=== PATIENT | male | born 1940 | race American Indian/Alaskan Native ===

== ENCOUNTER 2018-11-05 14:33 | Emergency (ER) | payer SELFPAY ==
[2018-11-05 15:06] LABS: Bilirubin Small (Negative); Blood, Urine Negative (Negative); Clarity CLEAR (Clear); Glucose, Urine (Dipstick) Negative (Negative); Leukocyte Negative (Negative); Nitrite Negative (Negative); Protein, Urine (Dipstick) Negative (Neg-Trace)
--- NOTE | 2018-11-05 15:09 | RAD ---
EXAM: CHEST ONE VIEW HISTORY: Altered mental status. COMPARISON: None FINDINGS: Cardiac silhouette is magnified by projection. The pulmonary vasculature is within normal limits. The lungs are clear. There is bilateral glenohumeral osteoarthropathy. IMPRESSION: No acute cardiopulmonary process.
[2018-11-05 15:25] LABS: #Eosinphils 0.1 thou/uL (0.0-0.7); #Lymphocytes 1.2 thou/uL (1.20-3.40); #Monocytes 0.4 thou/uL (0.11-0.59); #Neutrophils 5.1 thou/uL (1.40-6.50); %Basophils 0.5 % (0.0-1.0); %Eosinophils 1.5 % (0.0-10.0); %Lymphocytes 17.4 % (21.0-51.0); %Monocytes 6.2 % (0.0-10.0); %Neutrophils 74.3 % (42.0-75.0); Hemoglobin 14.9 g/dL (14.0-18.0); Mean Corpuscular HGB CONC 34.1 g/dL (32.0-36.0); Mean Corpuscular Hemoglobin 30.4 pg (27.0-31.0); Mean Corpuscular Volume 89.3 fL (78.0-98.0); Platelet Count 131 thou/uL (130-400); RBC Distribution Width 13.2 % (11.5-14.5); Red Blood Cell (RBC) Count 4.91 mill/uL (4.70-6.10); White Blood Cell (WBC) Count 6.8 thou/uL (4.8-10.8)
[2018-11-05 15:50] LABS: ALT (SGPT) 16 U/L (8-55); AST (SGOT) 15 U/L (5-34); Albumin 3.7 g/dL (3.4-4.8); Alkaline Phosphatase 78 U/L (40-150); Anion Gap 12 mmol/L (10-20); BUN (Urea Nitrogen) 14 mg/dL (8.4-25.7); Bilirubin, Total 0.4 mg/dL (0.2-1.2); Calc. Creatinine Clearance 0 mL/min (70-130); Calcium 8.4 mg/dL (7.8-10.44); Carbon Dioxide 25 mmol/L (23-31); Chloride 106 mmol/L (98-107); Estimated GFR-MDRD Greater than 90; Globulin 2.3 g/dL (2.4-3.5); Glucose 120 mg/dL (83-110); Potassium 3.9 mmol/L (3.5-5.1); Sodium 139 mmol/L (136-145)
[2018-11-05] MEDS ORDERED: Metoprolol Tartrate 5 MG/5 ML VIAL ONE (16:24)
[2018-11-05] MEDS ORDERED: Diltiazem 125 MG/25 ML ONE (16:45)
[2018-11-05] MEDS ORDERED: methylPREDNISolone Sod Succ/PF 125 MG/2 ML VIAL ONE (17:40)
[2018-11-05] MEDS ORDERED: Haloperidol Lactate 5 MG/ML VIAL ONE (19:25)
--- NOTE | 2018-11-05 20:22 | CT ---
EXAM: Brain CT scan Without contrast: HISTORY: Altered mental status COMPARISON: None FINDINGS: Atrophy and chronic white matter ischemic change. No focal mass or midline shift. No intra or extra-axial hemorrhage. The visualized sinuses and mastoids are clear of acute process. IMPRESSION: No mass or bleed or other significant acute intracranial process.
== END 2018-11-06 00:07 ==
LOC: ERS 14:33 → EDBD 14:33 → ERS 11-06 00:07
DX: J20.9 Acute bronchitis, unspecified (principal); F03.90 Unspecified dementia, unspecified severity, without behavioral disturbance, psychotic disturbance, mood disturbance, and anxiety; R00.0 Tachycardia, unspecified; R41.82 Altered mental status, unspecified; Z79.84 Long term (current) use of oral hypoglycemic drugs; Z79.899 Other long term (current) drug therapy
CPT/HCPCS: 36415; 70450; 71045; 80053; 81003; 83605; 84443; 84484; 85025; 93005; 96372; 96374; 96375; J1630; J2930

== ENCOUNTER 2019-03-19 09:47 | Emergency (ER) | payer MEDICARE, MEDICAID ==
--- NOTE | 2019-03-19 10:58 | RAD ---
EXAM: Portable chest PROVIDED CLINICAL HISTORY: Fall COMPARISON: 11/05/2018 FINDINGS: Cardiac and mediastinal silhouette is unchanged in appearance. No focal consolidation, pleural fluid or pneumothorax evident. IMPRESSION: No evidence for an acute cardiopulmonary process.
--- NOTE | 2019-03-19 10:59 | RAD ---
EXAM: XR Shoulder Lt 3 View STANDARD PROVIDED CLINICAL HISTORY: Pain FINDINGS: There is no evidence for fracture or other acute osseous abnormality. Alignment appears anatomic. Gle nohumeral degenerative changes are seen. IMPRESSION: No evidence for an acute osseous abnormality. If there is persistent clinical concern, conservative m anagement and follow-up imaging advised.
[2019-03-19] MEDS ORDERED: Acetaminophen 500 MG TAB ONE (11:04)
--- NOTE | 2019-03-19 11:29 | CT ---
NONCONTRAST CT HEAD: Date: 03/19/19 HISTORY: Injury after a fall. COMPARISON: 11/05/18. FINDINGS: Again noted is diminished attenuation of the periventricular white matter which is nonspecific, but l ikely reflective of chronic small vessel ischemic changes. Low density areas are again seen in each b blake ganglia, likely related to remote lacunar infarctions. There is no evidence of an acute cortical infarction, hemorrhage, mass effect, or midline shift. There is cerebral volume loss again present. The ventricular system is normal in size, shape, and position for the degree of sulcal atrophy. No ca lvarial fracture is seen. Visualized paranasal sinuses and mastoid air cells are clear. IMPRESSION: Stable CT head without evidence of an acute intracranial abnormality demonstrated. POS: OFF
--- NOTE | 2019-03-19 11:33 | CT ---
EXAM: CT scan cervical spineWithout contrast: HISTORY: Injury from a fall out of a wheelchair COMPARISON: None FINDINGS: No evidence for acute fracture or facet dislocation. 0.3 cm anterolisthesis of C2 on C3. No prevertebral soft tissue swelling. Very severe generalized disc osteophytosis and facet arthrosis with multilevel foraminal and lateral recess stenosis. IMPRESSION: No evidence for acute fracture or facet dislocation or other significant acute process. Severe spondylosis. 0.3 cm mild anterolisthesis of C2 on C3.
== END 2019-03-19 12:30 | disposition home or self-care (01) ==
LOC: ERS 09:47
DX: S43.402A Unspecified sprain of left shoulder joint, initial encounter (principal); E11.9 Type 2 diabetes mellitus without complications; F03.90 Unspecified dementia, unspecified severity, without behavioral disturbance, psychotic disturbance, mood disturbance, and anxiety; F31.9 Bipolar disorder, unspecified; W05.0XXA Fall from non-moving wheelchair, initial encounter
CPT/HCPCS: 70450; 71045; 72125

== ENCOUNTER 2019-03-27 13:50 | Emergency (ER) | payer MEDICARE, MEDICAID ==
[2019-03-27 15:34] LABS: Bilirubin Negative (Negative); Blood, Urine Negative (Negative); Clarity Clear (Clear); Glucose, Urine (Dipstick) Normal (Negative); Leukocyte Negative Leu/uL (Negative); Nitrite Negative (Negative); Protein, Urine (Dipstick) Negative (Neg-Trace); Urobilinogen Normal mg/dL (Less than 2)
[2019-03-27 15:38] LABS: #Eosinphils 0.1 thou/uL (0.0-0.7); #Lymphocytes 1.6 thou/uL (1.20-3.40); #Monocytes 0.5 thou/uL (0.11-0.59); #Neutrophils 4.6 thou/uL (1.40-6.50); %Basophils 0.3 % (0.0-1.0); %Eosinophils 1.3 % (0.0-10.0); %Monocytes 7.3 % (0.0-10.0); Hemoglobin 13.5 g/dL (14.0-18.0); Mean Corpuscular HGB CONC 33.7 g/dL (32.0-36.0); Mean Corpuscular Hemoglobin 31.6 pg (27.0-31.0); Mean Corpuscular Volume 93.8 fL (78.0-98.0); Mean Platelet Volume 7.9 fL (7.4-10.4); Platelet Count 171 thou/uL (130-400); RBC Distribution Width 12.4 % (11.5-14.5); Red Blood Cell (RBC) Count 4.27 mill/uL (4.70-6.10); White Blood Cell (WBC) Count 6.8 thou/uL (4.8-10.8)
[2019-03-27 15:44] LABS: Benzodiazepine Screen Detected (NotDetected); Cocaine Metabolite Screen Not Detected (NotDetected); Medtox Reader # READER 1; Methamphetamine Not Detected (NotDetected); Phencyclidine (PCP) Not Detected (NotDetected); THC/Cannabinoid Screen Not Detected (NotDetected)
[2019-03-27 15:45] LABS: Amphetamine Not Detected (NotDetected); Barbiturates Screen Not Detected (NotDetected); Medtox Control Line Valid? VALID (VALID); Methadone Not Detected (NotDetected); Opiate Screen Not Detected (NotDetected); Oxycodone Screen Not Detected (NotDetected); Tricyclic Screen Not Detected (NotDetected)
[2019-03-27 15:59] LABS: ALT (SGPT) 22 U/L (8-55); AST (SGOT) 15 U/L (5-34); Albumin 3.8 g/dL (3.4-4.8); Alkaline Phosphatase 61 U/L (40-110); Anion Gap 13 mmol/L (10-20); BUN (Urea Nitrogen) 16 mg/dL (8.4-25.7); Bilirubin, Total 0.3 mg/dL (0.2-1.2); Calc. Creatinine Clearance 0 mL/min (70-130); Calcium 8.9 mg/dL (7.8-10.44); Carbon Dioxide 33 mmol/L (23-31); Chloride 99 mmol/L (98-107); Estimated GFR-MDRD Greater than 90; Globulin 2.4 g/dL (2.4-3.5); Glucose 104 mg/dL (83-110); Potassium 3.9 mmol/L (3.5-5.1); Protein, Total 6.2 g/dL (5.8-8.1); Sodium 141 mmol/L (136-145)
[2019-03-27 16:12] LABS: Acetaminophen Less than 6.0 mcg/mL (10.0-30.0); Alcohol Less than 10 mg/dL (Less than 10); Salicylate Less than 8.0 mg/dL (15.0-30.0)
--- NOTE | 2019-03-27 17:23 | CT ---
CT BRAIN WITHOUT CONTRAST: HISTORY:Altered mental status COMPARISON:03/19/2019 FINDINGS: There are foci of decreased attenuation in the periventricular white matter, consistent with chronic small vessel ischemic disease. 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 No evidence of acute infarct, hemorrhage, midline shift or abnormal extra-axial fluid collections is seen. The ventricular size is appropriate and the basilar cisterns are patent. The bony calvarium is intact. The visualized paranasal sinuses and mastoid air cells are well aerated. IMPRESSION: No CT evidence of acute intracranial process.
[2019-03-27] MEDS ORDERED: Tranexamic Acid 1,000 MG/10 ML VIAL ONE (19:54)
[2019-03-27] MEDS ORDERED: Lidocaine 1% (PF) 30 ML VIAL ONE (19:54)
== END 2019-03-27 18:20 ==
LOC: ERS 13:50
DX: R45.6 Violent behavior (principal); F03.90 Unspecified dementia, unspecified severity, without behavioral disturbance, psychotic disturbance, mood disturbance, and anxiety; E11.9 Type 2 diabetes mellitus without complications; F31.9 Bipolar disorder, unspecified; G47.00 Insomnia, unspecified; F41.9 Anxiety disorder, unspecified; Z79.899 Other long term (current) drug therapy; Z79.82 Long term (current) use of aspirin; Z79.84 Long term (current) use of oral hypoglycemic drugs
CPT/HCPCS: 36415; 70450; 80053; 80306; 80307; 81003; 84443; 85025; J2001